=== PATIENT | female | born 1965 | race Caucasian/White ===

== ENCOUNTER 2017-03-17 18:36 | Emergency (ER) | payer OTHER ==
[2017-03-17 19:16] LABS: BLOOD UREA NITROGEN 14 mg/dL (7-17); CALCIUM 10.1 mg/dL (8.4-10.2); CHLORIDE 99 mmol/L (98-107); EST GLOMERULAR FILTRATION RATE > 60 mL/min; GLUCOSE 99 mg/dL (70-100); POTASSIUM 3.7 mmol/L (3.5-5.1); SODIUM 136 mmol/L (137-145)
[2017-03-17 19:28] LABS: INR 0.9
--- NOTE | 2017-03-17 19:29 | CT REPORT ---
HISTORY: Left-sided weakness COMPARISON: None. TECHNIQUE: Unenhanced axial CT of the head. Dose reduction technique was utilized. FINDINGS: The ventricles, sulci, and cisterns are normal in size, shape, and position There is no evidence of intracranial hemorrhage, mass lesion, or acute infarct There is no midline shift The bony calvaria appears intact The orbits appear unremarkable The visualized paranasal sinuses and mastoid air cells appear clear IMPRESSION: No acute intracranial abnormality. Results were communicated to Dr. Montalvo on 03/17/2017 7:23 PM Final Electronic Signature: This report was electronically signed by Gen Jean MD on 03/17/2017 7: 27 PM. jessica / / [facility] [phone]
[2017-03-17 19:30] LABS: HEMATOCRIT 40.2 % (36.0-48.0); HEMOGLOBIN 13.6 g/dL (12.0-16.0); RED BLOOD COUNT 3.96 X 10^6uL (4.20-6.10); WHITE BLOOD COUNT 10.5 X 10^3uL (3.9-10.7)
[2017-03-17 19:31] LABS: BASOPHILS 0.5 % (0.0-2.0); EOSINOPHILS 1.6 % (0.0-6.0); EOSINOPHILS# 0.2 X 10^3uL (0.0-0.4); LYMPHOCYTES 16.6 % (20.0-40.0); LYMPHOCYTES# 1.7 X 10^3uL (0.8-3.8); MEAN CORPUS. HGB CONCENTRATION 33.9 g/dL (32.0-36.0); MEAN CORPUSCULAR HEMOGLOBIN 34.4 pg (29.0-35.0); MEAN PLATELET VOLUME 8.7 fL (7.4-10.4); MONOCYTES 4.6 % (2.0-10.0); MONOCYTES# 0.5 X 10^3uL (0.2-1.0); NEUTROPHILS 76.7 % (54.0-75.0); PLATELET COUNT 243 X 10^3uL (130-440); RED CELL DISTRIBUTION WIDTH 11.6 % (11.5-14.5)
[2017-03-17 19:32] LABS: BASOPHIL# 0.1 X 10^3uL (0.0-0.1)
--- NOTE | 2017-03-17 22:10 | ER NURSING DOCUMENTATION ---
Nurse's Notes [facility] Name:Lisadnra Courtney Age:51 yrs Sex:Female :1965 Arrival Date:03/17/2017 Time:18:36 BedTrauma-A Private MD:Physician, No Diagnosis:Carotid TIA Presentation: 03/17 18:38 Acuity: ALEX 2 lp 18:47 Presenting complaint: Patient states: Left sided weakness and numbness as well as lc facial droop noted by daughter. Transition of care: Home. 18:47 Method Of Arrival: Private Vehicle lc 18:48 Time Last Known Well for patient was 1345. No acute neurological deficit is noted. lp Pre-hospital glucose is not applicable to this patient. Triage Assessment: 18:52 The onset of the patients symptoms was more than three but less than six hours ago. lp General: Appears in no apparent distress, Behavior is appropriate for age. Pain: Denies pain. Neuro: Level of Consciousness is awake, alert, Oriented to person, place, time, event, Sales Account Leader are equal bilaterally Moves all extremities. Gait is steady, Speech is normal, Facial symmetry appears normal, Reports numbness. Cardiovascular: No deficits noted. Respiratory: No deficits noted. GI: No deficits noted. Stroke Activation: Physician: ED Attending; Name: ; Notified At: ; Arrived At: Physician: sample carrier; Name: ; Notified At: ; Arrived At: Physician: Inspector Handbag Frames; Name: ; Notified At: ; Arrived At: Physician: [not used]; Name: ; Notified At: ; Arrived At: Physician: [not used]; Name: ; Notified At: ; Arrived At: 20:54 Not appropriate at this time lp Historical: - Allergies: PENICILLINS; - Home Meds: 1. Wellbutrin 75 mg oral tab 1 tab 3 times per day 2. lisinopril 10 mg oral tab 1 tab once daily 3. levothyroxine 100 mcg oral cap 1 cap once daily 4. Lexapro 20 mg oral tab 1 tab once daily - PMHx: Hypertension; DEPRESSION; ANXIETY; HYPOTHYROIDISM; - PSHx: BREAST BIOPSY; - Tetanus: < 10 years. - Ebola Screening: : Patient negative for fever greater than or equal to 101.5 degrees Fahrenheit, and additional compatible Ebola Virus Disease symptoms. Patient denies exposure to infectious person. Patient denies travel to an Ebola-affected area in the 21 days before illness onset. . - Immunization history: Flu Vaccine < 1 year. - Social history: Smoking status: Patient states was never smoker of tobacco. Screenin:53 Infectious Disease Risk None. Abuse screen: Denies threats or abuse. Denies injuries lp from another. Nutritional screening: No deficits noted. Assessment: 18:53 See Triage Assessment done by same RN. lp Vital Signs: 18:53 BP 166 / 97; Pulse 104; Resp 16; Temp 99.5(TE); Pulse Ox 93% on R/A; Weight 83.91 kg; lp Height 5 ft. 7 in. (170.18 cm); Pain 0/10; 19:31 BP 114 / 100 (auto/); lp 19:33 Pulse 103 MON; Resp 19; Pulse Ox 91% ; lp 20:00 BP 161 / 101 (auto/); lp 20:03 Pulse 97 MON; Resp 17; Pulse Ox 95% ; lp 21:12 BP 142 / 88; Pulse 99; Resp 18 S; Pulse Ox 92% ; bw2 22:07 BP 141 / 85; Pulse 74; Resp 18; Pulse Ox 96% on R/A; Pain 0/10; bw2 18:53 Body Mass Index 28.97 (83.91 kg, 170.18 cm) lp NIH Stroke Scale Scores: 18:48 NIHSS Score: 0 lp ED Course: 18:37 Patient arrived in ED. ds 18:37 Physician, No is Private Physician. ds 18:38 Agatha Rhodes, RN is Primary Nurse. lp 18:39 Triage completed. lp 18:50 EKG attached lc 18:52 Inserted peripheral IV: 18 gauge in left antecubital area and blood collected. tg 18:[address] Bowie notified. lp 18:54 Valuables Remains with patient Patient has correct armband on for positive lp identification. Placed in gown. Bed in low position. Call light in reach. 19:06 Shaun Clay MD is Attending Physician. tl1 20:[address] ted 20:[address] moved back from [address]. ted Administered Medications: 18:53 Drug: NS 0.9% 1000 ml; Route: IV; Rate: bolus; Site: left antecubital; tg 21:38 Follow up: IV Status: Completed infusion bw2 18:58 CANCELLED (Physician Discretion): niCARdipine IVPB 5 mg/hr IV at calculated rate lp continuous; May increase rate 2.5 mg/hr every 5 minutes to max 15 mg/hr 21:37 Drug: Aspirin 162 mg; Route: PO; 2 21:38 Follow up: Response: No adverse reaction [facility] Point of Care Testing: Blood Glucose: 18:59 Blood Glucose: 92 mg/dL; lp Ranges: Outcome: 21:25 [facility] Acceptance Time: March 17, 2017 at 21:15 Patient's face sheet was faxed to accepting facility. Face Sheet included patient's name, address, age, gender, contact information and insurance information. Patient will be transported by: [facility] ground. Nurse and Physician Charting and Notes were sent to Accepting Facility. All tests and/or procedures with results, if applicable, were sent to accepting facility. 21:37 Instructed on need for transfer bw 21:38 Condition: good [facility] 21:43 Transferred: Patient will be transported by: Report called to: unable to give report at [facility] this time, room is not assigned 21:51 Report given to April KINSEY bw2 22:09 ER care complete, transfer ordered by MD. [facility] 22:09 Patient left the ED. [facility] NIH Stroke Scale - NIH Stroke Score Date: 03/17/2017 Time: 18:48 Total Score = 0 1a. Level of Consciousness (LOC) - 0(Alert) 1b. Level of Consciousness (LOC) (Year & Age) - 0(Both) 1c. LOC Commands (Open & Closes Eyes/Telecom Billing Analyst) - 0(Both) 2. Best Gaze (Lateral Gaze Paresis) - 0(Normal) 3. Visual Field Loss - 0(No visual loss) 4. Facial Palsy - 0(Normal) 5a. Left Arm: Motor (10-second hold) - 0(No drift) 5b. Right Arm: Motor (10-second hold) - 0(No drift) 6a. Left Leg: Motor (5-second hold ? always test supine) - 0(No drift) 6b. Right Leg: Motor (5-second hold ? always test supine) - 0(No drift) 7. Limb Ataxia (finger/nose & heel/olivas ? test with eyes open) - 0(Absent) 8. Sensory Loss (pinprick arms/legs/face) - 0(Normal) 9. Best Language: Aphasia (description/naming/reading) - 0(No aphasia) 10. Dysarthria (speech clarity ? read or repeat words) - 0(Normal) 11. Extinction and Inattention (visual/tactile/auditory/spatial/personal) - 0(No abnormality) Initials: lp Signatures: Fadi Llamas RN RN tg Patricia Joseph RN RN lc Pavlish, Lena, RN RN lp Carla, Chantel, Reg Reg linda Garcia, Norberto Jones Tom, MD MD tl1 Cesar, Jerica bw2
--- NOTE | 2017-03-17 22:10 | ER PHYSICIAN DOCUMENTATION ---
Physician Documentation [facility] Name:Lisandra Courtney Age:51 yrs Sex:Female :1965 Arrival Date:03/17/2017 Time:18:36 BedTrauma-A Private MD:Physician, No ED Shaun Almonte Disposition: 03/17 21:46 Chart complete. tl1 Disposition: 03/17/17 22:09 Transfer ordered to [facility]. Diagnosis is Carotid TIA. - Reason for transfer: Higher level of care. - Accepting physician is sabrina. - Condition is Good. COBRA Form completed? Yes Transfer - Mode of Transportation Ambulance HPI: 21:01 This 51 yrs old Female presents to ER via Private Vehicle with complaints of tl1 Weakness - LEFT SIDE. 21:[address] [facility], in [facility] [place], about 2.5 miles up, at 1345, when she sat down to tl1 rest and then noted left facial droop, left face, arm and leg numbness followed by complete left sided paralysis. This lasted 30-35 minutes and then resolved. Rangers were sent and she was brought out for evaluation. On arrival here at 1840, her symptoms had resolved. She denied h/a, any recent head trauma, prior similar symptoms, palpitations or irregular heart beat or known cardiac problems. She has HTN, but no other risk factors.. Historical: - Allergies: PENICILLINS; - Home Meds: 1. Wellbutrin 75 mg oral tab 1 tab 3 times per day 2. lisinopril 10 mg oral tab 1 tab once daily 3. levothyroxine 100 mcg oral cap 1 cap once daily 4. Lexapro 20 mg oral tab 1 tab once daily - PMHx: Hypertension; DEPRESSION; ANXIETY; HYPOTHYROIDISM; - PSHx: BREAST BIOPSY; - Tetanus: < 10 years. - Ebola Screening: : Patient negative for fever greater than or equal to 101.5 degrees Fahrenheit, and additional compatible Ebola Virus Disease symptoms. Patient denies exposure to infectious person. Patient denies travel to an Ebola-affected area in the 21 days before illness onset. . - Immunization history: Flu Vaccine < 1 year. - Social history: Smoking status: Patient states was never smoker of tobacco. ROS: 21:41 Neuro: Positive for weakness. tl1 21:41 All other systems are negative. Exam: 21:41 Constitutional: The patient appears in no acute distress, alert, awake, comfortable, tl1 non-diaphoretic, non-toxic, well developed, well hydrated, well groomed, well nourished. 21:41 Head/face: Exam is negative for acute changes. 21:41 Eyes: Pupils: equal, round, and reactive to light and accomodation, Extraocular movements: intact throughout. 21:41 ENT: Exam is negative for acute changes. 21:41 Neck: Exam negative for acute changes, bruits, lymphadenopathy. 21:41 Cardiovascular: Rate: normal, Rhythm: regular, Heart sounds: normal, Edema: is not appreciated, JVD: is not appreciated. 21:41 Respiratory: the patient does not display signs of respiratory distress, Respirations: normal, no acute changes, Breath sounds: are normal. 21:41 Abdomen/GI: Palpation: abdomen is soft and non-tender. 21:41 Musculoskeletal/extremity: Exam is negative for 21:41 Skin: Exam negative for acute changes. 21:41 Skin: 21:41 Neuro: Orientation: is normal, Mentation: is normal, Memory: is normal, Cranial nerves: grossly normal, Motor: moves all fours, strength is 5/5 in the right hand, left hand, right foot and left foot, Sensation: light touch sense is normal, Deep tendon reflexes are 2+ (normal) in the right brachioradialis, right patellar, left brachioradialis and left patellar. Vital Signs: 18:53 BP 166 / 97; Pulse 104; Resp 16; Temp 99.5(TE); Pulse Ox 93% on R/A; Weight 83.91 kg; lp Height 5 ft. 7 in. (170.18 cm); Pain 0/10; 19:31 BP 114 / 100 (auto/); lp 19:33 Pulse 103 MON; Resp 19; Pulse Ox 91% ; lp 20:00 BP 161 / 101 (auto/); lp 20:03 Pulse 97 MON; Resp 17; Pulse Ox 95% ; lp 21:12 BP 142 / 88; Pulse 99; Resp 18 S; Pulse Ox 92% ; bw2 22:07 BP 141 / 85; Pulse 74; Resp 18; Pulse Ox 96% on R/A; Pain 0/10; bw2 18:53 Body Mass Index 28.97 (83.91 kg, 170.18 cm) lp NIH Stroke Scale Scores: 18:48 NIHSS Score: 0 lp MDM: 18:45 Patient medically screened. 18:50 EKG attached lc 21:44 The patient was last known to be well at March 17, 2017 at 13:45. Thrombolytics: No tl1 thrombolytic given. Data reviewed: vital signs, nurses notes, lab test result(s), EKG, radiologic studies, CT scan, and as a result, I will *Transfer Patient. Test interpretation: by ED physician or midlevel provider: plain radiologic studies, ECG. Counseling: I had a detailed discussion with the patient and/or guardian regarding: the historical points, exam findings, and any diagnostic results supporting the discharge/admit diagnosis, lab results, radiology results, the need to transfer to another facility. ECG:. 21:49 Physician consultation: Noel Hutchinson was called at 21:10, was contacted at 21:15, tl1 regarding admission, patient's condition, and will see patient in the ortho neuro unit at [facility].. after a discussion of the case, a recommendation for transfer for higher level of care is made. ED course: Asymptomatic with reasonable blood pressures during her stay in the ED. 03/17 19:29 Order name: BASIC METABOLIC PANEL; Complete Time: 19:34 EDWI 03/17 19:32 Interpretation: Normal. tl03/17 19:33 Order name: CBC AUTO DIF, MDIF/RMOR IF IND; Complete Time: 02:40 EDWI 03/18 02:40 Interpretation: WHITE BLOOD COUNT 10.5; HEMOGLOBIN 13.6; HEMATOCRIT 40.2; MEAN CELL 1 VOLUME 102.0; PLATELET COUNT 243. 03/17 19:33 Order name: PROTIME/INR; Complete Time: 02:40 EDWI 03/18 02:40 Interpretation: Normal: PROTIME 13.3; INR 0.9. 03/17 19:32 Order name: CAT SCAN; HEAD W/O CON 75090; Complete Time: 19:34 EDWI 03/17 19:33 Interpretation: NAD. SEE NOTE. 03/18 00:07 Order name: CTA;CAROTID BILAT [id number]; Complete Time: 02:40 [facility] 03/17 18:43 Order name: 12-lead EKG; Complete Time: 18:58 07/24 18:43 Order name: Continuous Cardiac Monitoring; Complete Time: 18:51 03/17 18:43 Order name: I & O; Complete Time: 18:58 03/17 18:43 Order name: NIH Stroke Scale; Complete Time: 18:58 03/17 18:43 Order name: NPO; Complete Time: 18:58 03/17 18:43 Order name: Pulse Ox Continuous; Complete Time: 18:58 EC:39 Rate is 102 beats/min. Rhythm is regular. QRS [place] is Normal. OK interval is normal at tl1 184 msec. QRS interval is normal at 88 msec. QT interval is normal at 469 msec. No Q waves. T waves are Normal. No ST changes noted. Clinical impression: Sinus tachycardia. Interpreted by me. Reviewed by me. Dispensed Medications: 18:53 Drug: NS 0.9% 1000 ml; Route: IV; Rate: bolus; Site: left antecubital; tg 21:38 Follow up: IV Status: Completed infusion bw2 18:58 CANCELLED (Physician Discretion): niCARdipine IVPB 5 mg/hr IV at calculated rate lp continuous; May increase rate 2.5 mg/hr every 5 minutes to max 15 mg/hr 21:37 Drug: Aspirin 162 mg; Route: PO; bw2 21:38 Follow up: Response: No adverse reaction bw2 Point of Care Testing: Blood Glucose: 18:59 Blood Glucose: 92 mg/dL; lp Ranges: Critical Glucose Levels:Adult <50 mg/dl or >400 mg/dl <40 mg/dl or >180 mg/dl NIH Stroke Scale - NIH Stroke Score Date: 03/17/2017 Time: 18:48 Total Score = 0 1a. Level of Consciousness (LOC) - 0(Alert) 1b. Level of Consciousness (LOC) (Year & Age) - 0(Both) 1c. LOC Commands (Open & Closes Eyes/Housekeeping Manager) - 0(Both) 2. Best Gaze (Lateral Gaze Paresis) - 0(Normal) 3. Visual Field Loss - 0(No visual loss) 4. Facial Palsy - 0(Normal) 5a. Left Arm: Motor (10-second hold) - 0(No drift) 5b. Right Arm: Motor (10-second hold) - 0(No drift) 6a. Left Leg: Motor (5-second hold ? always test supine) - 0(No drift) 6b. Right Leg: Motor (5-second hold ? always test supine) - 0(No drift) 7. Limb Ataxia (finger/nose & heel/olivas ? test with eyes open) - 0(Absent) 8. Sensory Loss (pinprick arms/legs/face) - 0(Normal) 9. Best Language: Aphasia (description/naming/reading) - 0(No aphasia) 10. Dysarthria (speech clarity ? read or repeat words) - 0(Normal) 11. Extinction and Inattention (visual/tactile/auditory/spatial/personal) - 0(No abnormality) Initials: lp Signatures: Fadi Llamas RN RN tg Patricia Joseph RN RN lc Pavlish, Lena, RN RN lp Meyer, John, MD MD jm Leigh, Tom, MD MD 1 Jerica Dickerson 2
--- NOTE | 2017-03-18 00:06 | CT REPORT ---
HISTORY: Stroke/TIA like symptoms. Left-sided weakness. COMPARISON: None. TECHNIQUE: This examination was performed using automated exposure control, adjustment of mA or kV according to patient size, and/or use of iterative reconstruction technique. Axial arterial phase postcontrast im ages of the head obtained from the aortic arch through makah of gonzalez, multiplanar and 3-D reformat images are evaluated. 95cc Isovue 300 and contrast. FINDINGS: The imaged lung apices are clear. There is mild ectasia of the ascending thoracic aorta measuring 4 c m anterior to posterior. There is some residual thymic tissue present within the anterior mediastinum . Arch anatomy appears normal. The bilateral common carotid arteries are patent and unremarkable. There is significant venous contamination artifact. There is some motion artifact also present. Withi n limits of study, there is no significant atherosclerotic plaque formation or hemodynamically signif icant stenosis within the extracranial carotid system. Evaluation for subtle plaque formation or nonflow limiting dissection flap is suboptimal on the curre nt examination. The bilateral vertebral arteries are symmetric and patent without evidence of a hemod ynamically significant stenosis. The distal internal carotid arteries at the skull base are difficult to assess secondary to streak ar tifact in the delayed phase of imaging. Suboptimal assessment of the intracranial arteries on current CT evaluation. There is particularly li mited assessment for subtle intracranial aneurysm. No hemodynamically significant stenosis or occlusi on of the bilateral M1 middle cerebral arteries. The M2 and peripheral middle cerebral artery branche s are not well assessed but appear generally symmetric. The anterior cerebral arteries are grossly un remarkable. Dolichoectasia of the basilar artery is noted. The posterior cerebral arteries are not adequately opa cified for definitive assessment but appear generally symmetric. There are degenerative changes of the cervical spine. The major dural venous sinuses are patent. No intracranial mass effect or midline shift within limits of study. Results were communicated to Cortes Clay at 03/17/2017 9:12 PM. IMPRESSION: Suboptimal for detail of the intracranial vessels, however, no evidence of hemodynamically significan t stenosis within the extracranial carotid or vertebral basilar system. No high-grade stenosis or occ lusion within the proximal intracranial circulation. All stenosis measurements reference the distal cervical ICA per NASCET criteria. Final Electronic Signature: This report was electronically signed by Lopez Cuellar MD on 03/18/2017 1 2:03 AM. [email or web address] / / [employer] [phone]
== END 2017-03-17 22:10 | disposition short-term general hospital (02) ==
LOC: ER 18:36
DX: G45.8 Other transient cerebral ischemic attacks and related syndromes (principal); R53.1 Weakness; R00.0 Tachycardia, unspecified; I10 Essential (primary) hypertension; Z79.899 Other long term (current) drug therapy; Z74.3 Need for continuous supervision
CPT/HCPCS: 70450; 70498; 80048; 85025; 85610; 96360; 96361; 99285; A0425; A0429